=== PATIENT | female | born 1970 | race American Indian/Alaskan Native ===

== ENCOUNTER 2022-04-06 01:08 | Observation (INO) | payer SELFPAY ==
[2022-04-06] MEDS ORDERED: ACETAMINOPHEN 500 MG TAB PO ONE (01:26)
[2022-04-06 01:49] LABS: Basophils % (Auto) 0.6 % (0.0-1.8); Eosinophils % (Auto) 0.4 % (0.0-4.3); Hematocrit 36.1 % (30.3-42.9); Hemoglobin 11.5 gm/dl (10.1-14.3); Lymphocytes # (Auto) 1.2 K/mm3 (1.2-5.4); Lymphocytes % (Auto) 17.1 % (13.4-35.0); Mean Corpuscular HGB Conc 32 % (30-34); Mean Corpuscular Volume 81 fl (79-97); Monocytes # (Auto) 0.3 K/mm3 (0.0-0.8); Platelet Count 182 K/mm3 (140-440); Red Blood Count 4.44 M/mm3 (3.65-5.03); Red Cell Distribution Width 15.3 % (13.2-15.2)
--- NOTE | 2022-04-06 01:54 | XRay Report ---
CHEST 1 VIEW 04/06/2022 1:43 AM INDICATION / CLINICAL INFORMATION: Chest pain, low grade fever. COMPARISON: None available. FINDINGS: SUPPORT DEVICES: None. HEART / MEDIASTINUM: Mild enlargement of the cardiac silhouette. No other significant abnormality. LUNGS / PLEURA: There are generalized bilateral interstitial opacities. No significant pleural effusi on. No pneumothorax. ADDITIONAL FINDINGS: No significant additional findings. IMPRESSION: Mild cardiomegaly with bilateral pulmonary opacities favored to represent edema. Signer Name: Terence Welch MD Signed: 04/06/2022 1:50 AM Workstation Name: [id number]
[2022-04-06 02:11] LABS: Alanine Aminotransferase 5 units/L (7-56); Albumin 3.8 g/dL (3.9-5); BUN/Creatinine Ratio 19; Blood Urea Nitrogen 13 mg/dL (7-17); Calcium 9.2 mg/dL (8.4-10.2); Hemolysis Index 8
[2022-04-06 02:22] LABS: Free T4 (Free Thyroxine) 1.23 ng/dL (0.76-1.46)
[2022-04-06 04:26] LABS: Bacteria,Urine 1+ /HPF (Negative); Mucus,Urine FEW /HPF
[2022-04-06 04:39] LABS: Bilirubin,Urine Negative (Negative); Color,Urine Yellow (Yellow)
[2022-04-06 04:40] LABS: Blood,Urine Negative (Negative); Protein,Urine <15 mg/dL mg/dL (Negative); Urobilinogen,Urine < 2.0 mg/dL (<2.0)
[2022-04-06] MEDS ORDERED: KETOROLAC 30 MG/1 ML INJ IV ONE (04:50)
--- NOTE | 2022-04-06 04:55 | Emergency Department Report ---
ED Chest Pain HPI - General Chief Complaint: Chest Pain Stated Complaint: CHEST/SOB PAIN Time Seen by Provider: 04/06/22 03:39 Source: patient, family Mode of arrival: Ambulatory Limitations: Language Barrier - History of Present Illness Initial Comments: 52-year-old female with no symptom past medical history presents to the hospital complaining of chest pain, cough, shortness of breath, generalized rash, and headache for several months. Patient is Citizen Of [place] and does not speak [place]. Patient's son-in-law is at the bedside assisting with translation. Patient moved here from [place] in December. Prior to moving here patient had a generalized pruritic raised pustular versus papular rash. She was told that it was secondary to an allergic reaction. Rash has persisted and evolved to generalized dark macules. Patient followed up with a local doctor's office several weeks ago and was told that her platelet count was low. Patient presented to the hospital today because she could not sleep secondary to her anterior chest pain that is worse with cough and her shortness of breath while lying supine. She also complains of bone pain to her legs and arms. She presents with a low-grade fever but denies febrile illness prior. None of her other family members in her home have a rash or infectious symptoms. Patient is vaccinated for COVID Severity scale (0 -10): 4 - Related Data Previous Rx's Medication Instructions Recorded Last Taken Type Aspirin EC [Halfprin EC] 81 mg PO QDAY #30 tablet 04/07/22 Unknown Rx Famotidine [Pepcid] 20 mg PO BID #60 tablet 04/07/22 Unknown Rx Furosemide [Lasix TAB] 40 mg PO QDAY #30 tablet 04/07/22 Unknown Rx Metoprolol [Lopressor TAB] 25 mg PO BID #60 tablet 04/07/22 Unknown Rx Potassium Chloride [K-Dur] 20 meq PO QDAY #30 tablet 04/07/22 Unknown Rx Allergies Allergy/AdvReac Type Severity Reaction Status Date / Time No Known Allergies Allergy Verified 04/06/22 01:29 Heart Score - HEART Score History: Slightly suspicious EKG: Non-specific Age: 45-65 Risk factors: 1-2 risk factors Troponin: < normal limit HEART Score: 3 - EKG Read Time Time EKG Completed: 01:19 EKG Read Time: 01:25 ED Review of Systems ROS: Stated complaint: CHEST/SOB PAIN Other details as noted in HPI Comment: All other systems reviewed and negative ED Past Medical Hx - Past Medical History Previous Medical History?: No - Surgical History Past Surgical History?: No - Social History Smoking Status: Unknown if ever smoked - Medications Home Medications: Home Medications Medication Instructions Recorded Confirmed Last Taken Type Aspirin EC [Halfprin EC] 81 mg PO QDAY #30 tablet 04/07/22 Unknown Rx Famotidine [Pepcid] 20 mg PO BID #60 tablet 04/07/22 Unknown Rx Furosemide [Lasix TAB] 40 mg PO QDAY #30 tablet 04/07/22 Unknown Rx Metoprolol [Lopressor TAB] 25 mg PO BID #60 tablet 04/07/22 Unknown Rx Potassium Chloride [K-Dur] 20 meq PO QDAY #30 tablet 04/07/22 Unknown Rx ED Physical Exam - General Limitations: Language Barrier - Other Other exam information: General: No acute distress Head: Atraumatic Eyes: normal appearance ENT: Moist mucous membranes Neck: Normal appearance, no midline tenderness Chest: Clear to auscultation bilaterally, patient is uncomfortable lying supine CV: Regular rate and rhythm Abdomen: Soft, normal bowel sounds, suprapubic tenderness, nondistended, no rebound or guarding Back: Normal inspection Extremity: Normal inspection, full range of motion, no edema no calf tenderness Neuro: Alert O x 3, no facial asymmetry, speech clear, no gross motor sensory deficit Psych: Appropriate behavior Skin: Generalized macular rash without pustules ED Course Vital Signs 04/06/22 04/06/22 04/06/22 01:15 03:26 03:30 Temperature 100.7 F H Pulse Rate 117 H 102 H 95 H Respiratory 20 16 16 Rate Blood Pressure 160/92 171/93 O2 Sat by Pulse 98 95 97 Oximetry 04/06/22 04/06/22 04/06/22 03:45 03:57 04:00 Temperature 99.1 F Pulse Rate 95 H 95 H 94 H Respiratory 29 H 16 10 L Rate Blood Pressure 171/92 171/92 171/92 O2 Sat by Pulse 95 100 95 Oximetry 04/06/22 04/06/22 04/06/22 04:16 04:30 04:46 Temperature Pulse Rate 93 H 90 87 Respiratory 18 23 24 Rate Blood Pressure 171/92 171/92 171/92 O2 Sat by Pulse 96 95 95 Oximetry 04/06/22 04/06/22 04/06/22 05:08 05:16 05:30 Temperature Pulse Rate 106 H 98 H 92 H Respiratory 18 15 20 Rate Blood Pressure 171/92 171/92 171/92 O2 Sat by Pulse 98 98 98 Oximetry 04/06/22 04/06/22 04/06/22 05:45 06:00 06:20 Temperature Pulse Rate 89 90 92 H Respiratory 16 18 23 Rate Blood Pressure 136/82 171/92 171/92 O2 Sat by Pulse 98 99 98 Oximetry 04/06/22 04/06/22 04/06/22 06:30 06:45 07:00 Temperature Pulse Rate 85 79 84 Respiratory 17 20 22 Rate Blood Pressure 171/92 134/71 136/82 O2 Sat by Pulse 97 97 97 Oximetry 04/06/22 04/06/22 04/06/22 07:16 07:30 07:45 Temperature Pulse Rate 84 87 85 Respiratory 21 24 23 Rate Blood Pressure 136/82 136/82 122/71 O2 Sat by Pulse 97 99 97 Oximetry 04/06/22 04/06/22 04/06/22 08:00 08:16 08:30 Temperature Pulse Rate 76 85 80 Respiratory 22 20 23 Rate Blood Pressure 122/71 122/71 122/71 O2 Sat by Pulse 97 98 98 Oximetry 04/06/22 04/06/22 04/06/22 08:45 09:00 09:16 Temperature Pulse Rate 75 80 76 Respiratory 17 26 H 23 Rate Blood Pressure 129/73 129/73 129/73 O2 Sat by Pulse 98 99 97 Oximetry 04/06/22 04/06/22 04/06/22 09:30 09:45 10:00 Temperature Pulse Rate 74 74 90 Respiratory 21 22 20 Rate Blood Pressure 129/73 108/72 108/72 O2 Sat by Pulse 97 97 96 Oximetry 04/06/22 04/06/22 04/06/22 10:16 10:30 10:45 Temperature Pulse Rate 82 80 83 Respiratory 29 H 24 17 Rate Blood Pressure 108/72 108/72 137/67 O2 Sat by Pulse 98 98 98 Oximetry 04/06/22 04/06/22 04/06/22 11:00 11:16 11:30 Temperature Pulse Rate 88 79 89 Respiratory 17 8 L 15 Rate Blood Pressure 137/67 137/67 137/67 O2 Sat by Pulse 98 96 99 Oximetry 04/06/22 04/06/22 04/06/22 11:45 12:00 12:16 Temperature Pulse Rate 78 77 85 Respiratory 13 22 24 Rate Blood Pressure 119/69 137/67 137/67 O2 Sat by Pulse 99 98 99 Oximetry 04/06/22 04/06/22 04/06/22 12:30 12:45 13:00 Temperature Pulse Rate 49 L 43 L 91 H Respiratory 21 9 L 21 Rate Blood Pressure 137/67 133/75 133/75 O2 Sat by Pulse 99 100 97 Oximetry 04/06/22 04/06/22 04/06/22 13:16 13:30 13:40 Temperature Pulse Rate 65 82 90 Respiratory 21 15 22 Rate Blood Pressure 133/75 133/75 133/75 O2 Sat by Pulse 99 99 96 Oximetry 04/06/22 04/06/22 04/06/22 13:50 14:00 14:10 Temperature Pulse Rate 82 84 85 Respiratory 20 19 16 Rate Blood Pressure 133/75 133/75 133/75 O2 Sat by Pulse 99 99 99 Oximetry KELSY score - Kelsy Score Age > 65: (0) No Aspirin use within the Past 7 Days: (0) No 3 or more CAD Risk Factors: (0) No 2 or more Angina events in past 24 hrs: (0) No Known CAD with more than 50% Stenosis: (0) No Elevated Cardiac Markers: (0) No ST Deviation Greater than 0.5mm: (0) No KELSY Score: 0 ED Medical Decision Making - Lab Data Result diagrams: 04/06/22 01:34 04/06/22 01:34 Lab Results 04/06/22 04/06/22 04/06/22 Range/Units 01:34 01:34 01:34 WBC 6.8 (4.5-11.0) K/mm3 RBC 4.44 (3.65-5.03) M/mm3 Hgb 11.5 (10.1-14.3) gm/dl Hct 36.1 (30.3-42.9) % MCV 81 (79-97) fl MCH 26 L (28-32) pg MCHC 32 (30-34) % RDW 15.3 H (13.2-15.2) % Plt Count 182 (140-440) K/mm3 Lymph % (Auto) 17.1 (13.4-35.0) % [place] % (Auto) 4.0 (0.0-7.3) % Eos % (Auto) 0.4 (0.0-4.3) % Baso % (Auto) 0.6 (0.0-1.8) % Lymph # (Auto) 1.2 (1.2-5.4) K/mm3 [place] # (Auto) 0.3 (0.0-0.8) K/mm3 Eos # (Auto) 0.0 (0.0-0.4) K/mm3 Baso # (Auto) 0.0 (0.0-0.1) K/mm3 Seg Neutrophils % 77.9 H (40.0-70.0) % Seg Neutrophils # 5.3 (1.8-7.7) K/mm3 APTT 31.7 (24.2-36.6) Sec. Sodium 139 (137-145) mmol/L Potassium 4.0 (3.6-5.0) mmol/L Chloride 100.9 (98-107) mmol/L Carbon Dioxide 24 (22-30) mmol/L Anion Gap 18 mmol/L BUN 13 (7-17) mg/dL Creatinine 0.7 (0.6-1.2) mg/dL Estimated GFR > 60 ml/min BUN/Creatinine Ratio 19 % Glucose 138 H (65-100) mg/dL Lactic Acid (0.7-2.0) mmol/L Calcium 9.2 (8.4-10.2) mg/dL Total Bilirubin 0.50 (0.1-1.2) mg/dL AST 17 (5-40) units/L ALT 5 L (7-56) units/L Alkaline Phosphatase 97 (35-129) units/L Troponin T (0.00-0.029) ng/mL NT-Pro-B Natriuret Pep (0-900) pg/mL Total Protein 7.6 (6.3-8.2) g/dL Albumin 3.8 L (3.9-5) g/dL Albumin/Globulin Ratio 1.0 % TSH (0.270-4.200) mlU/mL Free T4 (0.76-1.46) ng/dL Urine Color (Yellow) Urine Turbidity (Clear) Urine pH (5.0-7.0) Ur Specific [place] (1.003-1.030) Urine Protein (Negative) mg/dL Urine Glucose (UA) (Negative) mg/dL Urine Ketones (Negative) mg/dL Urine Blood (Negative) Urine Nitrite (Negative) Ur Reducing Substances Urine Bilirubin (Negative) Urine Ictotest Urine Urobilinogen (<2.0) mg/dL Ur Leukocyte Esterase (Negative) Urine WBC (Auto) (0.0-6.0) /HPF Urine RBC (Auto) (0.0-6.0) /HPF Urine Bacteria (Auto) (Negative) /HPF Urine Mucus /HPF 04/06/22 04/06/22 04/06/22 Range/Units 01:34 01:34 01:34 WBC (4.5-11.0) K/mm3 RBC (3.65-5.03) M/mm3 Hgb (10.1-14.3) gm/dl Hct (30.3-42.9) % MCV (79-97) fl MCH (28-32) pg MCHC (30-34) % RDW (13.2-15.2) % Plt Count (140-440) K/mm3 Lymph % (Auto) (13.4-35.0) % [place] % (Auto) (0.0-7.3) % Eos % (Auto) (0.0-4.3) % Baso % (Auto) (0.0-1.8) % Lymph # (Auto) (1.2-5.4) K/mm3 [place] # (Auto) (0.0-0.8) K/mm3 Eos # (Auto) (0.0-0.4) K/mm3 Baso # (Auto) (0.0-0.1) K/mm3 Seg Neutrophils % (40.0-70.0) % Seg Neutrophils # (1.8-7.7) K/mm3 APTT (24.2-36.6) Sec. Sodium (137-145) mmol/L Potassium (3.6-5.0) mmol/L Chloride (98-107) mmol/L Carbon Dioxide (22-30) mmol/L Anion Gap mmol/L BUN (7-17) mg/dL Creatinine (0.6-1.2) mg/dL Estimated GFR ml/min BUN/Creatinine Ratio % Glucose (65-100) mg/dL Lactic Acid 0.70 (0.7-2.0) mmol/L Calcium (8.4-10.2) mg/dL Total Bilirubin (0.1-1.2) mg/dL AST (5-40) units/L ALT (7-56) units/L Alkaline Phosphatase (35-129) units/L Troponin T < 0.010 (0.00-0.029) ng/mL NT-Pro-B Natriuret Pep (0-900) pg/mL Total Protein (6.3-8.2) g/dL Albumin (3.9-5) g/dL Albumin/Globulin Ratio % TSH 0.942 (0.270-4.200) mlU/mL Free T4 1.23 (0.76-1.46) ng/dL Urine Color (Yellow) Urine Turbidity (Clear) Urine pH (5.0-7.0) Ur Specific [place] (1.003-1.030) Urine Protein (Negative) mg/dL Urine Glucose (UA) (Negative) mg/dL Urine Ketones (Negative) mg/dL Urine Blood (Negative) Urine Nitrite (Negative) Ur Reducing Substances Urine Bilirubin (Negative) Urine Ictotest Urine Urobilinogen (<2.0) mg/dL Ur Leukocyte Esterase (Negative) Urine WBC (Auto) (0.0-6.0) /HPF Urine RBC (Auto) (0.0-6.0) /HPF Urine Bacteria (Auto) (Negative) /HPF Urine Mucus /HPF 04/06/22 04/06/22 04/06/22 Range/Units 01:34 05:11 05:11 WBC (4.5-11.0) K/mm3 RBC (3.65-5.03) M/mm3 Hgb (10.1-14.3) gm/dl Hct (30.3-42.9) % MCV (79-97) fl MCH (28-32) pg MCHC (30-34) % RDW (13.2-15.2) % Plt Count (140-440) K/mm3 Lymph % (Auto) (13.4-35.0) % [place] % (Auto) (0.0-7.3) % Eos % (Auto) (0.0-4.3) % Baso % (Auto) (0.0-1.8) % Lymph # (Auto) (1.2-5.4) K/mm3 [place] # (Auto) (0.0-0.8) K/mm3 Eos # (Auto) (0.0-0.4) K/mm3 Baso # (Auto) (0.0-0.1) K/mm3 Seg Neutrophils % (40.0-70.0) % Seg Neutrophils # (1.8-7.7) K/mm3 APTT (24.2-36.6) Sec. Sodium (137-145) mmol/L Potassium (3.6-5.0) mmol/L Chloride (98-107) mmol/L Carbon Dioxide (22-30) mmol/L Anion Gap mmol/L BUN (7-17) mg/dL Creatinine (0.6-1.2) mg/dL Estimated GFR ml/min BUN/Creatinine Ratio % Glucose (65-100) mg/dL Lactic Acid 0.70 (0.7-2.0) mmol/L Calcium (8.4-10.2) mg/dL Total Bilirubin (0.1-1.2) mg/dL AST (5-40) units/L ALT (7-56) units/L Alkaline Phosphatase (35-129) units/L Troponin T < 0.010 (0.00-0.029) ng/mL NT-Pro-B Natriuret Pep 2947 H (0-900) pg/mL Total Protein (6.3-8.2) g/dL Albumin (3.9-5) g/dL Albumin/Globulin Ratio % TSH (0.270-4.200) mlU/mL Free T4 (0.76-1.46) ng/dL Urine Color (Yellow) Urine Turbidity (Clear) Urine pH (5.0-7.0) Ur Specific [place] (1.003-1.030) Urine Protein (Negative) mg/dL Urine Glucose (UA) (Negative) mg/dL Urine Ketones (Negative) mg/dL Urine Blood (Negative) Urine Nitrite (Negative) Ur Reducing Substances Urine Bilirubin (Negative) Urine Ictotest Urine Urobilinogen (<2.0) mg/dL Ur Leukocyte Esterase (Negative) Urine WBC (Auto) (0.0-6.0) /HPF Urine RBC (Auto) (0.0-6.0) /HPF Urine Bacteria (Auto) (Negative) /HPF Urine Mucus /HPF 04/06/22 Range/Units Unknown WBC (4.5-11.0) K/mm3 RBC (3.65-5.03) M/mm3 Hgb (10.1-14.3) gm/dl Hct (30.3-42.9) % MCV (79-97) fl MCH (28-32) pg MCHC (30-34) % RDW (13.2-15.2) % Plt Count (140-440) K/mm3 Lymph % (Auto) (13.4-35.0) % [place] % (Auto) (0.0-7.3) % Eos % (Auto) (0.0-4.3) % Baso % (Auto) (0.0-1.8) % Lymph # (Auto) (1.2-5.4) K/mm3 [place] # (Auto) (0.0-0.8) K/mm3 Eos # (Auto) (0.0-0.4) K/mm3 Baso # (Auto) (0.0-0.1) K/mm3 Seg Neutrophils % (40.0-70.0) % Seg Neutrophils # (1.8-7.7) K/mm3 APTT (24.2-36.6) Sec. Sodium (137-145) mmol/L Potassium (3.6-5.0) mmol/L Chloride (98-107) mmol/L Carbon Dioxide (22-30) mmol/L Anion Gap mmol/L BUN (7-17) mg/dL Creatinine (0.6-1.2) mg/dL Estimated GFR ml/min BUN/Creatinine Ratio % Glucose (65-100) mg/dL Lactic Acid (0.7-2.0) mmol/L Calcium (8.4-10.2) mg/dL Total Bilirubin (0.1-1.2) mg/dL AST (5-40) units/L ALT (7-56) units/L Alkaline Phosphatase (35-129) units/L Troponin T (0.00-0.029) ng/mL NT-Pro-B Natriuret Pep (0-900) pg/mL Total Protein (6.3-8.2) g/dL Albumin (3.9-5) g/dL Albumin/Globulin Ratio % TSH (0.270-4.200) mlU/mL Free T4 (0.76-1.46) ng/dL Urine Color Yellow (Yellow) Urine Turbidity Clear (Clear) Urine pH 6.0 (5.0-7.0) Ur Specific [place] 1.000 L (1.003-1.030) Urine Protein <15 mg/dl (Negative) mg/dL Urine Glucose (UA) Negative (Negative) mg/dL Urine Ketones Negative (Negative) mg/dL Urine Blood Negative (Negative) Urine Nitrite Negative (Negative) Ur Reducing Substances Not Reportable Urine Bilirubin Negative (Negative) Urine Ictotest Not Reportable Urine Urobilinogen < 2.0 (<2.0) mg/dL Ur Leukocyte Esterase Negative (Negative) Urine WBC (Auto) 1.0 (0.0-6.0) /HPF Urine RBC (Auto) 1.0 (0.0-6.0) /HPF Urine Bacteria (Auto) 1+ (Negative) /HPF Urine Mucus Few /HPF - EKG Data -: EKG Interpreted by Me (Left bundle branch block) EKG shows normal: sinus rhythm, ST-T waves (No STEMI) Rate: tachycardia (118) - EKG Data When compared to previous EKG there are: previous EKG unavailable - Radiology Data Radiology results: report reviewed CHEST 1 VIEW 04/06/2022 1:43 AM INDICATION / CLINICAL INFORMATION: Chest pain, low grade fever. COMPARISON: None available. FINDINGS: SUPPORT DEVICES: None. HEART / MEDIASTINUM: Mild enlargement of the cardiac silhouette. No other significant abnormality. LUNGS / PLEURA: There are generalized bilateral interstitial opacities. No significant pleural effusion. No pneumothorax. ADDITIONAL FINDINGS: No significant additional findings. IMPRESSION: Mild cardiomegaly with bilateral pulmonary opacities favored to represent edema. CTA CHEST WITH CONTRAST INDICATION / CLINICAL INFORMATION: sob, cough. TECHNIQUE: Axial CT images were obtained through the chest after injection of 100 cc Omnipaque 350 IV contrast. 3 plane MIP and/or 3D reconstructions were produced. All CT scans at this location are performed using CT dose reduction for ALARA by means of automated exposure control. COMPARISON: One view of the chest performed today. FINDINGS: PULMONARY EMBOLUS: None. THORACIC AORTA: No significant abnormality. HEART: Mildly enlarged. No other significant abnormality. CORONARY ARTERY CALCIFICATION: Absent -- None. MEDIASTINUM / АЛЕКСАНДР: No significant abnormality. PLEURA: No pleural effusion. No pneumothorax. LUNGS: No acute air space or interstitial disease. ADDITIONAL FINDINGS: None. UPPER ABDOMEN: No acute findings. SKELETAL STRUCTURES: No significant osseous abnormality. IMPRESSION: 1. No CT evidence for pulmonary embolism. 2. No acute findings. 3. Mild cardiomegaly. - Medical Decision Making 52-year-old female presents to the hospital complaining of cp with abnl ekg. She complains of cough productive of sputum, headache, generalized body aches, and a rash that has been present for several months. Patient is low-grade temperature here in the ED. No signs of severe sepsis or septic shock. CT angiogram negative for pulmonary embolism, infiltrate, or edema despite elevation in BNP. EKG shows a left bundle branch block which then resolved spontaneously with inferior lateral T waves without previous for comparison. Troponin negative x2. Fever and heart rate improved with Tylenol. Patient noted to have mildly elevated blood pressure but denies history of hypertension. Patient will be admitted for further evaluation Critical Care Time: No Critical care attestation.: If time is entered above; I have spent that time in minutes in the direct care of this critically ill patient, excluding procedure time. ED Disposition Clinical Impression: Chest pain, Fever, Cough, Rash Disposition: 01 HOME / SELF CARE / HOMELESS Is pt being admited?: No Does the pt Need Aspirin: No Condition: Stable Time of Disposition: 06:06
--- NOTE | 2022-04-06 05:37 | Cat Scan Report ---
CTA CHEST WITH CONTRAST INDICATION / CLINICAL INFORMATION: sob, cough. TECHNIQUE: Axial CT images were obtained through the chest after injection of 100 cc Omnipaque 350 IV contrast. 3 plane MIP and/or 3D reconstructions were produced. All CT scans at this location are per formed using CT dose reduction for ALARA by means of automated exposure control. COMPARISON: One view of the chest performed today. FINDINGS: PULMONARY EMBOLUS: None. THORACIC AORTA: No significant abnormality. HEART: Mildly enlarged. No other significant abnormality. CORONARY ARTERY CALCIFICATION: Absent -- None. MEDIASTINUM / АЛЕКСАНДР: No significant abnormality. PLEURA: No pleural effusion. No pneumothorax. LUNGS: No acute air space or interstitial disease. ADDITIONAL FINDINGS: None. UPPER ABDOMEN: No acute findings. SKELETAL STRUCTURES: No significant osseous abnormality. IMPRESSION: 1. No CT evidence for pulmonary embolism. 2. No acute findings. 3. Mild cardiomegaly. Signer Name: Terence Welch MD Signed: 04/06/2022 5:33 AM Workstation Name: [id number]
[2022-04-06] MEDS ORDERED: ACETAMINOPHEN 325 MG TAB PO PRN (11:23)
[2022-04-06] MEDS ORDERED: ONDANSETRON 4 MG/2 ML INJ IV PRN (11:23)
[2022-04-06] MEDS ORDERED: MORPHINE 4 MG/1 ML INJ IV PRN (11:23)
[2022-04-06] MEDS ORDERED: NALOXONE 0.4 MG/1 ML INJ IV PRN (11:23)
[2022-04-06] MEDS ORDERED: oxyCODONE /ACETAMINOPHEN 5-325MG TAB PO PRN (11:23)
--- NOTE | 2022-04-06 11:27 | History and Physical Report ---
History of Present Illness Date of examination: 04/06/22 Date of admission: 04/06/22 Chief complaint: chest pain, fever, rash History of present illness: 52-year-old female with no symptom past medical history presents to the hospital complaining of chest pain, cough, shortness of breath, generalized rash, and headache for several months. Patient is [place] and does not speak Slovak. Patient's son-in-law is at the bedside assisting with translation. Patient mo suzy here from [place] in December. Prior to moving here patient had a generalized pruritic raised pustular versus papular rash. She was told that it was secondary to an allergic reaction. Rash has persisted and evolved to generalized dark macules. Patient followed up with a local doctor's office mag[facility] weeks ago and was told that her platelet count was low. Patient presented to the hospital today because she could not sleep secondary to her anterior chest pain that is worse with cough and her shortness of breath while lying supine. She also complains of bone pain to her legs and arms. She presents with a low-grade fever but denies febrile illness prior. None of her other family members in her home have a rash or infectious symptoms. Patient is vaccinated for COVID Medications and Allergies Allergies Allergy/AdvReac Type Severity Reaction Status Date / Time No Known Allergies Allergy Verified 04/06/22 01:29 Home Medications Medication Instructions Recorded Confirmed Last Taken Type Benzonatate [Tessalon Perles] 100 mg PO Q8HR PRN #20 cap 04/06/22 Unknown Rx Famotidine [Pepcid] 20 mg PO BID #30 tablet 04/06/22 Unknown Rx Ibuprofen [Motrin] 800 mg PO Q8HR PRN #20 tablet 04/06/22 Unknown Rx Active Meds: Active Medications Acetaminophen (Acetaminophen 325 Mg Tab) 650 mg PO Q4H PRN PRN Reason: Pain MILD(1-3)/Fever >100.5/RUSSELL Famotidine (Famotidine 20 Mg Tab) 20 mg PO BID NANCY Morphine Sulfate (Morphine 4 Mg/1 Ml Inj) 4 mg IV Q4H PRN PRN Reason: Pain , Severe (7-10) Naloxone HCl (Naloxone 0.4 Mg/1 Ml Inj) 0.1 mg IV Q2MIN PRN PRN Reason: Res Rate </= 8 or 02 SAT < 92% Ondansetron HCl (Ondansetron 4 Mg/2 Ml Inj) 4 mg IV Q8H PRN PRN Reason: Nausea And Vomiting Oxycodone/Acetaminophen (Oxycodone /Acetaminophen 5-325mg Tab) 1 tab PO Q6H PRN PRN Reason: Pain, Moderate (4-6) Sodium Chloride (Sodium Chloride 0.9% 10 Ml Flush Syringe) 10 ml IV BID NANCY Sodium Chloride (Sodium Chloride 0.9% 10 Ml Flush Syringe) 10 ml IV PRN PRN PRN Reason: LINE FLUSH Exam - Constitutional Vitals: Temp Pulse Resp BP Pulse Ox 99.1 F 83 17 137/67 98 04/06/22 03:57 04/06/22 10:45 04/06/22 10:45 04/06/22 10:45 04/06/22 10:45 HEART Score - HEART Score EKG: Non-specific Age: 45-65 Risk factors: 1-2 risk factors Troponin: Troponin T < 0.010 ng/mL (0.00-0.029) 04/06/22 07:28 Troponin: < normal limit Results - Labs CBC & Chem 7: 04/06/22 01:34 04/06/22 01:34 Labs: Abnormal lab results 04/06/22 04/06/22 04/06/22 Range/Units 01:34 01:34 01:34 MCH 26 L (28-32) pg RDW 15.3 H (13.2-15.2) % Seg Neutrophils % 77.9 H (40.0-70.0) % Glucose 138 H (65-100) mg/dL ALT 5 L (7-56) units/L NT-Pro-B Natriuret Pep 2947 H (0-900) pg/mL Albumin 3.8 L (3.9-5) g/dL Ur Specific [place] (1.003-1.030) 04/06/22 Range/Units Unknown MCH (28-32) pg RDW (13.2-15.2) % Seg Neutrophils % (40.0-70.0) % Glucose (65-100) mg/dL ALT (7-56) units/L NT-Pro-B Natriuret Pep (0-900) pg/mL Albumin (3.9-5) g/dL Ur Specific [place] 1.000 L (1.003-1.030) Assessment and Plan -- Acute chest pain -- elevated BNP Plan - will admit to telemetry bed - monitor with serial CE and EKG - will place on Aspirin, statin - as needed SL NTG and iv morphin for pain - Monitor BP, add betablocker and ACEI if BP tolerates - order 2D echo and cardiology consult -- fever with rash -- mild hypoalbuminemia Plan - cardiac diet now, ordered covid test, ID consult --Nutrition consult - provide DVT Px with lovenox, GI prophylaxis with Pepcid
[2022-04-06] MEDS ORDERED: ASPIRIN EC 325 MG TAB PO ONE (12:00)
[2022-04-06] MEDS: FAMOTIDINE 20 MG TAB PO SCH (21:45)
[2022-04-07] MEDS ORDERED: hydrALAZINE 20 MG/1 ML INJ IV PRN (06:46)
[2022-04-07] MEDS: FAMOTIDINE 20 MG TAB PO SCH (09:38)
[2022-04-07] MEDS ORDERED: METOPROLOL TARTRATE 25 MG TAB PO SCH (12:00)
--- NOTE | 2022-04-07 13:00 | Consultation ---
History of Present Illness Consult date: 04/07/22 Consult reason: chest pain History of present illness: The patient is a 52-year-old woman who recently moved here from [place]. She presents with several days of cough, which culminated in musculoskeletal type chest pain after multiple days of protracted coughing. She was seen in the emergency room and referred for admission. Cardiac consultation was requested for chest pain assessment. The patient reports that chest pain only occurred with coughing episodes, otherwise no history of exertional chest pain or angina. Work-up in the hospital so far: Initial ECG was a sinus tachycardia at 118 with left bundle branch block. Follow-up EKG when she returned to sinus rhythm at 89 showed left ventricular hypertrophy with repolarization abnormalities of LVH. The left bundle branch block was apparently rate related. Chest x-ray revealed a mild cardiomegaly, but clear lungs with no interstitial edema, and no evident infiltrates. The patient had an echocardiogram done yesterday ordered by the medical service. This revealed well-preserved left ventricular systolic ejection fraction 50 to 55%. However there was significant evidence of rheumatic valvular heart disease. There was moderate aortic stenosis with moderate aortic regurgitation. The mitral valve also showed moderate stenotic and valvular lesions. 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 She is unable to recall if she suffered childhood rheumatic fever. Past History Past Medical History: hypertension Medications and Allergies Allergies Allergy/AdvReac Type Severity Reaction Status Date / Time No Known Allergies Allergy Verified 04/06/22 01:29 Active Meds: Active Medications Acetaminophen (Acetaminophen 325 Mg Tab) 650 mg PO Q4H PRN PRN Reason: Pain MILD(1-3)/Fever >100.5/RUSSELL Atorvastatin Calcium (Atorvastatin 40 Mg Tab) 40 mg PO QHS [facility] Last Admin: 04/06/22 21:45 Dose: 40 mg Famotidine (Famotidine 20 Mg Tab) 20 mg PO BID [facility] Last Admin: 04/07/22 09:38 Dose: 20 mg Hydralazine HCl (Hydralazine 20 Mg/1 Ml Inj) 10 mg IV Q6HR PRN PRN Reason: Blood Pressure Last Admin: 04/07/22 07:10 Dose: 10 mg Metoprolol Tartrate (Metoprolol Tartrate 25 Mg Tab) 25 mg PO BID [facility] Morphine Sulfate (Morphine 4 Mg/1 Ml Inj) 4 mg IV Q4H PRN PRN Reason: Pain , Severe (7-10) Naloxone HCl (Naloxone 0.4 Mg/1 Ml Inj) 0.1 mg IV Q2MIN PRN PRN Reason: Res Rate </= 8 or 02 SAT < 92% Ondansetron HCl (Ondansetron 4 Mg/2 Ml Inj) 4 mg IV Q8H PRN PRN Reason: Nausea And Vomiting Oxycodone/Acetaminophen (Oxycodone /Acetaminophen 5-325mg Tab) 1 tab PO Q6H PRN PRN Reason: Pain, Moderate (4-6) Sodium Chloride (Sodium Chloride 0.9% 10 Ml Flush Syringe) 10 ml IV BID [facility] Last Admin: 04/07/22 09:39 Dose: 10 ml Sodium Chloride (Sodium Chloride 0.9% 10 Ml Flush Syringe) 10 ml IV PRN PRN PRN Reason: LINE FLUSH Review of Systems Cardiovascular: chest pain, shortness of breath, no orthopnea, no palpitations, no rapid/irregular heart beat, no edema, no syncope, no lightheadedness Physical Examination Vital Signs Temp Pulse Resp BP Pulse Ox 100.7 F H 117 H 20 160/92 98 04/06/22 01:15 04/06/22 01:15 04/06/22 01:15 04/06/22 01:15 04/06/22 01:15 General appearance: no acute distress HEENT: Positive: PERRL Neck: Positive: neck supple Cardiac: Positive: Reg Rate and Rhythm, Systolic Murmur Lungs: Positive: Decreased Breath Sounds Neuro: Positive: Grossly Intact Abdomen: Positive: Soft Female genitourinary: deferred Skin: Positive: Clear Extremities: Absent: edema Results 04/06/22 01:34 04/06/22 01:34 EKG interpretations - Telemetry EKG Rhythm: Sinus Rhythm (With left ventricle hypertrophy and resolution abnormalities of LVH.) Assessment and Plan - Patient Problems (1) Rheumatic valvular disease Current Visit: Yes Status: Acute Plan to address problem: 52-year-old woman who presents with cough and musculoskeletal type chest pain associated with protracted cough. No clinical presentation of cardiac chest pain or angina. Serial ECGs show sinus rhythm with left ventricle hypertrophy, and rate related left bundle branch block. Most significant cardiac finding is evidence of rheumatic valvular disease with mixed mitral and mixed aortic valve lesions. Patient has no evidence of pulmonary edema or decompensated heart failure from this valvular lesions. These lesions are likely chronic. No acute iliac intervention is indicated at the current time, will defer to internal medicine and pulmonary for evaluation and management of the patient's presenting cough and generalized body rash, recommend outpatient cardiac follow- up of her rheumatic valvular disease. I have also recommended antibiotic prophylaxis in the setting of dental procedures, optimal management of her blood pressure including use of afterload agents, and low-dose furosemide.
[2022-04-07] MEDS ORDERED: FUROSEMIDE 40 MG TAB PO SCH (14:00)
[2022-04-07] MEDS ORDERED: ASPIRIN EC 81 MG TAB PO SCH (14:00)
[2022-04-07] MEDS ORDERED: VALSARTAN 40 MG TAB PO SCH (14:00)
[2022-04-07] MEDS ORDERED: POTASSIUM CHLORIDE ER 20 MEQ TAB PO SCH (14:00)
--- NOTE | 2022-04-07 14:49 | Consultation ---
History of Present Illness - Reason for Consult Consult date: 04/07/22 fever, rash Requesting physician: WEN FERGUSON - History of Present Illness The patient is a 52-year-old female who moved here in December from [place]. She was brought to the hospital with some cough. She also has this rash present for a long time. ID was consulted for additional evaluation. Had a low-grade temperature of 100.7 F. No fever since then. Remains off antibiotics. Labs reviewed, showed no leukocytosis. proBNP was elevated at 2947. COVID-negative. CTA chest did not reveal any pneumonia or PE. Chest x-ray suggestive of mild pulmonary edema. Review of Systems: Negative Past History Past Medical History: hypertension Medications and Allergies Allergies Allergy/AdvReac Type Severity Reaction Status Date / Time No Known Allergies Allergy Verified 04/06/22 01:29 Active Meds: Active Medications Acetaminophen (Acetaminophen 325 Mg Tab) 650 mg PO Q4H PRN PRN Reason: Pain MILD(1-3)/Fever >100.5/RUSSELL Aspirin (Aspirin Ec 81 Mg Tab) 81 mg PO QDAY [facility] Last Admin: 04/07/22 14:13 Dose: 81 mg Atorvastatin Calcium (Atorvastatin 40 Mg Tab) 40 mg PO QHS [facility] Last Admin: 04/06/22 21:45 Dose: 40 mg Famotidine (Famotidine 20 Mg Tab) 20 mg PO BID [facility] Last Admin: 04/07/22 09:38 Dose: 20 mg Furosemide (Furosemide 40 Mg Tab) 40 mg PO QDAY [facility] Last Admin: 04/07/22 14:19 Dose: 40 mg Hydralazine HCl (Hydralazine 20 Mg/1 Ml Inj) 10 mg IV Q6HR PRN PRN Reason: Blood Pressure Last Admin: 04/07/22 07:10 Dose: 10 mg Metoprolol Tartrate (Metoprolol Tartrate 25 Mg Tab) 25 mg PO BID [facility] Last Admin: 04/07/22 14:13 Dose: 25 mg Morphine Sulfate (Morphine 4 Mg/1 Ml Inj) 4 mg IV Q4H PRN PRN Reason: Pain , Severe (7-10) Naloxone HCl (Naloxone 0.4 Mg/1 Ml Inj) 0.1 mg IV Q2MIN PRN PRN Reason: Res Rate </= 8 or 02 SAT < 92% Ondansetron HCl (Ondansetron 4 Mg/2 Ml Inj) 4 mg IV Q8H PRN PRN Reason: Nausea And Vomiting Oxycodone/Acetaminophen (Oxycodone /Acetaminophen 5-325mg Tab) 1 tab PO Q6H PRN PRN Reason: Pain, Moderate (4-6) Potassium Chloride (Potassium Chloride Er 20 Meq Tab) 20 meq PO QDAY [facility] Last Admin: 04/07/22 14:12 Dose: 20 meq Sodium Chloride (Sodium Chloride 0.9% 10 Ml Flush Syringe) 10 ml IV BID [facility] Last Admin: 04/07/22 09:39 Dose: 10 ml Sodium Chloride (Sodium Chloride 0.9% 10 Ml Flush Syringe) 10 ml IV PRN PRN PRN Reason: LINE FLUSH Valsartan (Valsartan 40 Mg Tab) 80 mg PO BID [facility] Physical Examination - Physical Exam Narrative exam: Physical Exam: Constitutional: Alert, cooperative. No acute distress Head, Ears, Nose: Normocephalic, atraumatic. External ears, nose normal Eyes: Conjunctivae/corneas clear. No icterus. No ptosis. Neck: Supple, no meningeal signs Cardiovascular: S1, S2 + Respiratory: Good air entry, clear to auscultation bilaterally GI: Soft, non-tender; bowel sounds normal. No peritoneal signs Musculoskeletal: No pedal edema, no cyanosis. Skin: Hyperpigmented maculopapular rash, itchy Hem/Lymphatic: No palpable cervical or supraclavicular nodes. No lymphangitis Psych: Mood ok. Affect normal Neurological: Awake, alert, oriented. No gross abnormality - Constitutional Vitals: Vital Signs Temp Pulse Resp BP Pulse Ox 97.3 F L 82 18 148/84 99 04/07/22 06:02 04/07/22 14:13 04/07/22 06:02 04/07/22 14:13 04/07/22 06:02 Temperature -Last 24 Hours Temperature 97.3 F Temperature 98.0 F Temperature 97.9 F Results - Labs CBC & Chem 7: 04/06/22 01:34 04/06/22 01:34 - Imaging and Cardiology Chest x-ray: report reviewed, image reviewed Assessment and Plan Cultures: 04/06/2022 blood culture: No growth A/P: 52/F with: #Chronic hyperpigmented itchy maculopapular rash: Present all over the body. She has intermittent flareups resembling hives. As per the patient's daughter, it has been present for at least 4 to 5 years and started while she was in [place]. #Suspected rheumatic valvular disease, evaluated by cardiology. Recs: -Given chronicity, intermittent flareups resembling hives, possibility of chronic urticaria. Recommend outpatient evaluation with dermatology or allergy. Infectious etiology seems unlikely. Discussed with Dr. Ferguson. Will sign off. Liz Eden MD, FACP, [facility] O: [phone] F: [phone] C: [phone]
--- NOTE | 2022-04-07 14:56 | Discharge Summary ---
Providers - Providers Date of Admission: 04/06/22 11:23 Date of discharge: 04/07/22 Attending physician: WEN FERGUSON 04/06/22 11:23 Consult to Physician [CONS] Routine Comment: Consulting Provider: GERARDO CENTENO Physician Instructions: Reason For Exam: rash with fever 04/06/22 11:33 Consult to Physician [CONS] Routine Comment: Consulting Provider: MARISOL LISA Physician Instructions: Reason For Exam: chest pain Primary care physician: FINISHING ROOM SUPERVISOR Hospitalization Condition: Stable Final Discharge Diagnosis (Prints w/discharge instructions): -- Acute chest pain, resolved likely due to GERD. -- Rheumatoid cardiac valvular disease, chronic and stable. -- Chronic urticaria. -- Hypertension Time spent for discharge: 34 minutes Core Measure Documentation - Palliative Care Palliative Care/ Comfort Measures: Not Applicable - Core Measures Any of the following diagnoses?: none Exam - Constitutional Vitals: Temp Pulse Resp BP Pulse Ox 97.3 F L 82 18 148/84 99 04/07/22 06:02 04/07/22 14:13 04/07/22 06:02 04/07/22 14:13 04/07/22 06:02 Plan Activity: advance as tolerated Weight Bearing Status: Weight Bear as Tolerated Diet: low fat, low salt Additional Instructions: Follow-up with skein winding operator in 1 to 2 weeks. Follow- up with account assistant in 1 to 2 weeks Follow up with: HOLLY FRANCISCO MD [Primary Care Provider] - 7 Days MARISOL LISA MD [Staff Physician] - 7 Days Prescriptions: Aspirin EC [Halfprin EC] 81 mg PO QDAY #30 tablet Potassium Chloride [K-Dur] 20 meq PO QDAY #30 tablet Furosemide [Lasix TAB] 40 mg PO QDAY #30 tablet Metoprolol [Lopressor TAB] 25 mg PO BID #60 tablet Famotidine [Pepcid] 20 mg PO BID #60 tablet
[2022-04-07 15:12] VITALS: BP 141/80
--- NOTE | 2022-04-07 18:20 | Electrocardiograph Report ---
[facility] Test Date: 2022-04-06 Test Time: 01:19:58 Pat Name: ARY BOWER Department: Room: A386 Gender: F Exterior Work Helper: MICHELE : 1970 Requested By: DERICK GOSS Order Number: [id number] Reading MD: Brittany Walker Measurements Intervals [place] Rate: 118 P: 0 TN: 94 QRS: -63 QRSD: 145 T: 96 QT: 400 QTc: 561 Interpretive Statements Sinus tachycardia LEFT BUNDLE BRANCH BLOCK No previous ECG available for comparison Electronically Signed On 04-07-2022 18:20:50 EDT by Brittany Walker
--- NOTE | 2022-04-07 18:24 | Electrocardiograph Report ---
[facility] Test Date: 2022-04-06 Test Time: 05:58:25 Pat Name: ARY BOWER Department: Room: A386 1 Gender: F Angle Shear Set Up Operator: CHRISTINE : 1970 Requested By: DERICK GOSS Order Number: [id number] Reading MD: Brittany Walker Measurements Intervals [place] Rate: 89 P: -68 ME: 137 QRS: 15 QRSD: 79 T: -41 QT: 365 QTc: 444 Interpretive Statements Normal sinus Left ventricle hypertrophy with repolarization abnormalities of LVH Compared to ECG 04/06/2022 01:19:58 Sinus rate has slowed by 29 bpm Left bundle branch block is no longer evident Electronically Signed On 04-07-2022 18:23:24 EDT by Brittany Walker
== END 2022-04-07 17:53 | disposition home or self-care (01) ==
LOC: ED 01:08 → 3A 11:23
PROVIDERS: ADMIT Internal Medicine; ATTEND Internal Medicine
DX: R07.89 Other chest pain (principal); Z20.822 Contact with and (suspected) exposure to COVID-19; I09.1 Rheumatic diseases of endocardium, valve unspecified; I10 Essential (primary) hypertension; R21 Rash and other nonspecific skin eruption; R05.9 Cough, unspecified; R50.9 Fever, unspecified; L50.9 Urticaria, unspecified; E88.09 Other disorders of plasma-protein metabolism, not elsewhere classified; Z79.82 Long term (current) use of aspirin; Z79.899 Other long term (current) drug therapy; Z98.890 Other specified postprocedural states
CPT/HCPCS: 36415; 71045; 71275; 80053; 81001; 82140; 83880; 84439; 84443; 84484; 85025; 85730; 87040; 93005; 96374; 96375; 99285; C8929; G0378; J0360; J1885; Q9967; U0003; 93306